=== PATIENT | male | born 1975 | race Caucasian/White ===

== ENCOUNTER 2018-10-24 15:10 | Emergency (ER) | payer OTHER ==
[~2018-10-24] VITALS: Ht 182.9 cm; Wt 105.7 kg
[2018-10-24 15:12] VITALS: BP 151/107
[2018-10-24] MEDS ORDERED: ALBUTEROL/IPRATROPIUM 2.5MG/0.5MG, 3 ML NPPB ONE (15:30)
[2018-10-24] MEDS ORDERED: ALBUTEROL/IPRATROPIUM 2.5MG/0.5MG, 3 ML ONE (15:30)
== END 2018-10-24 16:22 | disposition home or self-care (01) ==
LOC: ED 16:14
DX: J98.01 Acute bronchospasm (principal)
CPT/HCPCS: 71046; 93005; 94640; 99283; J7512; J7620